=== PATIENT | female | born 1985 | race American Indian/Alaskan Native ===

== ENCOUNTER 2016-06-17 11:17 | Emergency (ER) | payer MEDICAID ==
--- NOTE | 2016-06-17 17:32 | Emergency Department Report ---
HPI - General Chief Complaint: Upper Respiratory Infection Time Seen by Provider: 06/17/16 17:27 - HPI HPI: Patient is a 30-year-old female who presents to ED complaining of runny nose/ cough and congestion 2 weeks. Patient states about 2 weeks ago her symptoms started with a runny nose and a dry cough. Patient tells time goes by she took some Claritin and Mucinex with no relief. Patient states a week ago she started greenish productive mucus with intermittent cough. Patient states cough and is now worse since causing her chest pain with coughing. Patient states she has a history of asthma and 2, breathing treatment this morning which helped give her some relief. Patient states she is having pain along the sinuses. She did not see assessed chills/nausea/vomiting/abdominal pain, shortness of breath, chest pain problems. ED Past Medical Hx - Past Medical History Hx Hypertension: No Hx Heart Attack/AMI: No Hx Liver Disease: No Hx Renal Disease: No Hx Asthma: Yes (used inhaler 2 months ago) Additional medical history: abnormal vaginal bleeding - Surgical History Additional Surgical History: x 3 - Social History Smoking Status: Never Smoker Substance Use Type: None - Medications Home Medications: Home Medications Medication Instructions Recorded Confirmed Last Taken Type HYDROcodone/APAP 5-325 [[place] 1 - 2 each PO Q6HR PRN #14 tablet 05/02/13 Unknown Rx 5/325 mg] Norgestimate-Ethinyl Estradiol 1 each PO BID #1 package 05/02/13 Unknown Rx [Sprintec] metroNIDAZOLE [Flagyl] 500 mg PO BID #14 tablet 05/02/13 05/27/16 05/24/16 Rx Brijesh-Iron Oral Liq 75 Mg/5 Ml PO DAILY 05/27/16 05/24/16 History traMADol 50 mg PO DAILY 05/27/16 05/27/16 05/24/16 History Acetaminophen [Acetaminophen 8 650 mg PO TID #30 tablet.er 06/17/16 Unknown Rx Hour] Amoxicillin [Trimox CAP] 500 mg PO TID #21 capsule 06/17/16 Unknown Rx Prednisone [predniSONE 10 mg 10 mg PO .TAPER #1 tab.ds.pk 06/17/16 Unknown Rx (6-Day Pack, 21 Tabs)] guaiFENesin/CODEINE [Robitussin AC] 5 ml PO TID #90 ml 06/17/16 Unknown Rx ED Review of Systems ROS: Stated complaint: HEAD/NECK/CHEST PAIN Other details as noted in HPI Constitutional: denies: chills, fever Eyes: denies: eye pain, eye discharge, vision change ENT: denies: ear pain, throat pain Respiratory: denies: cough, shortness of breath, wheezing Cardiovascular: denies: chest pain, palpitations Endocrine: no symptoms reported Gastrointestinal: denies: abdominal pain, nausea, diarrhea Genitourinary: denies: urgency, dysuria, discharge Musculoskeletal: denies: back pain, joint swelling, arthralgia Skin: denies: rash, lesions Neurological: denies: headache, weakness, numbness, paresthesias, confusion Psychiatric: denies: anxiety, depression Hematological/Lymphatic: denies: easy bleeding, easy bruising Physical Exam - Physical Exam Vital Signs: Vital Signs 06/17/16 13:11 Temperature 98.7 F Pulse Rate 65 Respiratory 20 Rate Blood Pressure 105/70 O2 Sat by Pulse 100 Oximetry Physical Exam: GENERAL: Alert and oriented x3, no apparent distress, Normal Gait, atraumatic. Intermittent coughing during examination. HEAD: Head is normocephalic and a-traumatic. EYES: Extra ocular muscles are intact. Pupils are equal, round, and reactive to light and accommodation. EARS: symetrical, atraumatic, non tender, ear canal clear and moderate cerumen, tympanic membrance non inflamed. gross auditory nml bilaterally. NOSE: Nose symetrical, Nontender,Nares appeared normal. Frontal and maxillary sinus tenderness to palpation. MOUTH:Mouth is well hydrated and without lesions. Tonsils nonerythematous or swollen, Uvula midline, Tongue not elevated. Mucous membranes are moist. Posterior pharynx clear, no exudate or lesions. Patent airways. NECK: Supple. Non edematous, No carotid bruits. No lymphadenopathy or thyromegaly. LUNGS: Symetrical with respiration, No wheezing, no rales or crackles, CTAB. HEART: S1, S2 present, regular rate and rhythm without murmur, no rubs, no gallops. ABDOMEN: No organomegaly was noted,Positive bowel sounds, soft, and non- distended. . Nontender to palpation on all Quadrants, NO CVA tenderness. EXTREMITIES/MUSCULOSKELETAL: No cyanosis, clubbing, rash, lesions or edema. Full ROM bilaterally. UE/LE Pulses 2+ bilaterally. NEUROLOGIC: No focal Deficit, Cranial nerves II through XII are grossly intact. No loss of sensation, PSYCHIATRIC: Mood is congruent with affect, denies suicidal or homicidal ideations. SKIN: Warm and dry, No lesions, No ulceration or induration present. ED Course Vital Signs 06/17/16 13:11 Temperature 98.7 F Pulse Rate 65 Respiratory 20 Rate Blood Pressure 105/70 O2 Sat by Pulse 100 Oximetry ED Medical Decision Making - Medical Decision Making 30-year-old female presents with sinusitis with bronchitis. ED course: Patient received Tylenol with codeine, Motrin and prednisone IM. Discussed patient antibiotic therapy. Discussed patient emotional Tylenol as needed for pain. Discussed patient with prednisone pack to be completed. Discussed patient to continue taking inhaler as needed at home nebulizer when needed. Discussed the follow-up primary care physician. Discussed worsening symptoms or new symptoms arise to return to ED. Vital signs are stable. Patient is in no acute or respiratory distress. Critical care attestation.: If time is entered above; I have spent that time in minutes in the direct care of this critically ill patient, excluding procedure time. ED Disposition Clinical Impression: Bronchitis Sinusitis Qualifiers: Sinusitis location: maxillary Chronicity: subacute Qualified Code(s): J01.00 - Acute maxillary sinusitis, unspecified Disposition: DISCHARGED TO HOME OR SELFCARE Is pt being admited?: No Does the pt Need Aspirin: No Condition: Stable Instructions: Chronic Bronchitis (ED), Sinusitis (ED), Upper Respiratory Infection (ED) Prescriptions: Acetaminophen [Acetaminophen 8 Hour] 650 mg PO TID #30 tablet.er Amoxicillin [Trimox CAP] 500 mg PO TID #21 capsule guaiFENesin/CODEINE [Robitussin AC] 5 ml PO TID #90 ml Prednisone [predniSONE 10 mg (6-Day Pack, 21 Tabs)] 10 mg PO .TAPER #1 tab.ds.pk Referrals: PRIMARY CARE, [Primary Care Provider] - 3-5 Days SHARATH TAYLOR MD [Referring] - 3-5 Days LE ABDALLA MD [Referring] - 3-5 Days JAIMEE HARMON MD [Referring] - 3-5 Days ANNE AMOS MD [Staff Physician] - 3-5 Days Forms: Accompanied Note, Work/School Release Form(ED) Time of Disposition: 17:53
[2016-06-17] MEDS ORDERED: TYLENOL/CODEINE PO ONE (17:43)
[2016-06-17] MEDS ORDERED: TRIMOX PO ONE (17:44)
[2016-06-17 18:45] VITALS: BP 108/58
== END 2016-06-17 18:45 | disposition home or self-care (01) ==
LOC: ED 11:17
DX: J40 Bronchitis, not specified as acute or chronic (principal); J01.00 Acute maxillary sinusitis, unspecified; J45.909 Unspecified asthma, uncomplicated
CPT/HCPCS: 96372; 99282; J2920

== ENCOUNTER 2016-07-22 12:35 | Emergency (ER) | payer MEDICAID | END 2016-07-22 12:40 | disposition left against medical advice (07) | LOC: ED 12:35 | DX: R51 Headache (principal); M54.2 Cervicalgia; Z53.21 Procedure and treatment not carried out due to patient leaving prior to being seen by health care provider ==

== ENCOUNTER 2016-08-20 19:57 | Emergency (ER) | payer MEDICAID ==
[2016-08-20 20:14] VITALS: BP 110/70
== END 2016-08-20 22:15 | disposition left against medical advice (07) ==
LOC: ED 19:57
DX: R51 Headache (principal); R07.9 Chest pain, unspecified; Z53.21 Procedure and treatment not carried out due to patient leaving prior to being seen by health care provider
CPT/HCPCS: 93005; 93010

== ENCOUNTER 2017-03-22 11:57 | Emergency (ER) | payer MEDICAID ==
[2017-03-22 12:08] VITALS: BP 108/78
--- NOTE | 2017-03-22 12:39 | XRay Report ---
XRAY CHEST TWO VIEWS: 03/22/17 11:57:00 CLINICAL: Cough. COMPARISON: None. FINDINGS: Normal heart and pulmonary vasculature. The lungs are mildly hyperexpanded and hyperlucentThe bones and soft tissues are unremarkable. IMPRESSION: Mild pulmonary hyperinflation. No pneumonia. Sign off report will
--- NOTE | 2017-03-22 14:22 | Emergency Department Report ---
Minor Respiratory - HPI Chief Complaint: Upper Respiratory Infection Stated Complaint: ASTHMA SORE THROAT Time Seen by Provider: 03/22/17 14:22 Duration: 2 Days Pain Location: Throat, Chest Severity: mild Minor Respiratory: Yes Sore Throat, Yes Able to Tolerate Fluids, Yes Ear Pain, Yes Cough, Yes Fever (YEST PER PT), No Rhinorrhea, No Sick Contacts, No Hemoptysis, No Chest Pain, No Shortness of Breath ED Review of Systems ROS: Stated complaint: ASTHMA SORE THROAT Other details as noted in HPI Comment: All other systems reviewed and negative ENT: throat pain Respiratory: cough, wheezing ED Past Medical Hx - Past Medical History Hx Hypertension: No Hx Heart Attack/AMI: No Hx Liver Disease: No Hx Renal Disease: No Hx Asthma: Yes Additional medical history: abnormal vaginal bleeding - Surgical History Additional Surgical History: x 3 - Social History Smoking Status: Never Smoker Substance Use Type: None - Medications Home Medications: Home Medications Medication Instructions Recorded Confirmed Last Taken Type Azithromycin [Zithromax TAB] 250 mg PO QDAY #6 tablet 03/22/17 Unknown Rx predniSONE [Deltasone] 20 mg PO DAILY #5 tablet 03/22/17 Unknown Rx Minor Respiratory Exam - Exam General: Vital signs noted. No distress. Alert and acting appropriately. HEENT: Yes Pharyngeal Erythema, Yes Moist Mucous Membranes, Yes Frontal Tenderness, Yes Maxillary Tenderness, No Pharyngeal Exudates, No Rhinorrhea, No Conjuctival Injection Ear: Both TM Erythema, Neither TM Bulge, Neither EAC Pain, Neither EAC Discharge Neck: Yes Supple, No Adenopathy Lungs: Yes Good Air Exchange, Yes Wheezes, Yes Cough, No Ronchi, No Stridor, No Labored Respirations, No Retractions, No Use of Accessory Muscles, No Other Abnormal Lung Sounds Heart: Yes Regular, No Murmur Abdomen: Yes Normal Bowel Sounds, No Tenderness, No Peritoneal Signs Skin: No Rash, No Edema Neurologic: Alert and oriented, no deficits. Musculoskeletal: Unremarkable. ED Course Vital Signs 03/22/17 12:06 Temperature 98.3 F Pulse Rate 87 Respiratory 16 Rate Blood Pressure 108/78 O2 Sat by Pulse 100 Oximetry - Reevaluation(s) Reevaluation #1: 03/22/17 14:48 TO ER W S/S URTI ASTHMA PT MILD WHEEEZING NON ILL NON TOXIC NO FEVER SAT 100 RA MEDICATED DC HOME W DC POC ED Medical Decision Making - Radiology Data Radiology results: report reviewed, image reviewed - Medical Decision Making SEE NOTE ASTHMA AE - Differential Diagnosis RO PNA Critical care attestation.: If time is entered above; I have spent that time in minutes in the direct care of this critically ill patient, excluding procedure time. ED Disposition Clinical Impression: Asthma with acute exacerbation, URTI (acute upper respiratory infection) Disposition: DC- TO HOME OR SELFCARE Is pt being admited?: No Condition: Stable Instructions: Asthma (ED) Additional Instructions: REST FLUIDS HYDRATE WELL REMEMBER IF THERE IS VIRAL COMPONENT IT WILL TAKE TIME FOR SYMPTOMS TO GO AWAY GOOD HANDWASHING MEDS ORDERED MOTRIN OR TYLENOL FOR PAIN OR FEVER FOLLOW UP WITH PCP FRIDAY FOR RECHECK CONTINUE HOME FLONVENT, LORATODINE, AND FLONASE Referrals: YISSEL MCDANIEL MD [Primary Care Provider] - 3-5 Days Time of Disposition: 14:42
[2017-03-22] MEDS ORDERED: TYLENOL PO ONE (14:39)
[2017-03-22] MEDS ORDERED: DUONEB *Not for PRN Use IH ONE (14:39)
== END 2017-03-22 15:39 | disposition home or self-care (01) ==
LOC: ED 11:57
DX: J45.901 Unspecified asthma with (acute) exacerbation (principal); J06.9 Acute upper respiratory infection, unspecified; Z88.2 Allergy status to sulfonamides; Z88.6 Allergy status to analgesic agent
CPT/HCPCS: 71020; 94640; 96374; 99283; J2930

== ENCOUNTER 2017-04-14 21:23 | Emergency (ER) | payer MEDICAID ==
[2017-04-14 21:36] VITALS: BP 103/71
[2017-04-14] MEDS ORDERED: TYLENOL PO ONE (22:07)
--- NOTE | 2017-04-15 02:36 | Emergency Department Report ---
- General Chief Complaint: Upper Respiratory Infection Stated Complaint: NECK PAIN Time Seen by Provider: 04/15/17 01:42 Source: patient Mode of arrival: Ambulatory Limitations: No Limitations - History of Present Illness Initial Comments: Patient is a 31-year-old -[place] female with a history of sinusitis recurrent who presents for sinus pain sinus pressure low-grade fever 102.13 days last sinus infection 1 month ago treated with Zpack patient states worse this time there is no dizziness no nausea no vomiting no vertigo no sore throat and cough no ear pain symptoms concentrated the maxillary and frontal sinuses tenderness swelling yellow-green nasal discharge MD Complaint: fever, rhinorrhea, nasal congestion, sinus pain Onset/Timin -: week(s) Severity: moderate Severity scale (0 -10): 5 Quality: aching, other (pressure ) Consistency: constant Worsens With: other (lying down) Associated Symptoms: fever, rhinorrhea, nasal congestion, nausea. denies: myalgias, diaphoresis, stiff neck, cough, chest pain, shortness of breath, abdominal pain, vomiting, diarrhea, dysuria, rash, confusion, right sweats, weight loss, epistaxis, hoarseness, ear pain Treatments Prior to Arrival: none - Related Data Previous Rx's Medication Instructions Recorded Last Taken Type Azithromycin [Zithromax TAB] 250 mg PO QDAY #6 tablet 03/22/17 Unknown Rx predniSONE [Deltasone] 20 mg PO DAILY #5 tablet 03/22/17 Unknown Rx Amoxicillin/Potassium Clav 1 tab PO BID #20 tablet 04/15/17 Unknown Rx [Augmentin 875-125 Tablet] Ibuprofen 800 mg PO TID PRN #30 tablet 04/15/17 Unknown Rx Oxymetazoline 0.05% [Afrin] 2 spray NS BID #1 bottle 04/15/17 Unknown Rx predniSONE [Deltasone] 40 mg PO QDAY #10 tab 04/15/17 Unknown Rx Allergies Allergy/AdvReac Type Severity Reaction Status Date / Time aspirin Allergy Rash Verified 03/22/17 12:06 Sulfa (Sulfonamide Allergy Shortness Verified 03/22/17 12:06 Antibiotics) of Breath ED Review of Systems ROS: Stated complaint: NECK PAIN Other details as noted in HPI Constitutional: denies: chills, fever Eyes: denies: eye pain, eye discharge, vision change ENT: congestion Respiratory: denies: cough, shortness of breath, wheezing Cardiovascular: denies: chest pain, palpitations Endocrine: no symptoms reported Gastrointestinal: denies: abdominal pain, nausea, diarrhea Genitourinary: denies: urgency, dysuria, discharge Musculoskeletal: denies: back pain, joint swelling, arthralgia Skin: denies: rash, lesions Neurological: denies: headache, weakness, paresthesias Psychiatric: denies: anxiety, depression Hematological/Lymphatic: denies: easy bleeding, easy bruising ED Past Medical Hx - Past Medical History Hx Hypertension: No Hx Heart Attack/AMI: No Hx Liver Disease: No Hx Renal Disease: No Hx Asthma: Yes Additional medical history: abnormal vaginal bleeding, Sinusitis - Surgical History Additional Surgical History: x 3 - Social History Smoking Status: Never Smoker Substance Use Type: None - Medications Home Medications: Home Medications Medication Instructions Recorded Confirmed Last Taken Type Azithromycin [Zithromax TAB] 250 mg PO QDAY #6 tablet 03/22/17 Unknown Rx predniSONE [Deltasone] 20 mg PO DAILY #5 tablet 03/22/17 Unknown Rx Amoxicillin/Potassium Clav 1 tab PO BID #20 tablet 04/15/17 Unknown Rx [Augmentin 875-125 Tablet] Ibuprofen 800 mg PO TID PRN #30 tablet 04/15/17 Unknown Rx Oxymetazoline 0.05% [Afrin] 2 spray NS BID #1 bottle 04/15/17 Unknown Rx predniSONE [Deltasone] 40 mg PO QDAY #10 tab 04/15/17 Unknown Rx ED Physical Exam - General Limitations: No Limitations General appearance: alert, in no apparent distress - Head Head exam: Present: atraumatic, normocephalic - Eye Eye exam: Present: normal appearance, PERRL, EOMI Pupils: Present: normal accommodation - ENT ENT exam: Present: mucous membranes moist, TM's normal bilaterally - Expanded ENT Exam Expanded Ear exam: Present: normal external inspection Throat exam: Positive: other (bilat maxillary and frontal sinus pain erythema , nose: boggy yellow green output, no obstruction no polyps no obstruction ) - Neck Neck exam: Present: normal inspection. Absent: full ROM, lymphadenopathy, thyromegaly - Respiratory Respiratory exam: Present: normal lung sounds bilaterally. Absent: respiratory distress - Cardiovascular Cardiovascular Exam: Present: regular rate, normal rhythm. Absent: systolic murmur, diastolic murmur, rubs, gallop - GI/Abdominal GI/Abdominal exam: Present: soft, normal bowel sounds. Absent: distended, tenderness, guarding, rebound, rigid, organomegaly, mass, bruit, pulsatile mass , hernia - Rectal Rectal exam: Present: deferred - Extremities Exam Extremities exam: Present: normal inspection - Back Exam Back exam: Present: normal inspection - Neurological Exam Neurological exam: Present: alert, oriented X3 - Psychiatric Psychiatric exam: Present: normal affect, normal mood - Skin Skin exam: Present: warm, dry, intact, normal color. Absent: rash ED Course Vital Signs 04/14/17 04/14/17 21:28 21:58 Temperature 99.1 F 99.1 F Pulse Rate 90 95 H Respiratory 18 Rate Blood Pressure 103/71 103/71 O2 Sat by Pulse 99 97 Oximetry ED Medical Decision Making - Medical Decision Making Patient is a 31-year-old -[place] female with a history of sinusitis recurrent who presents for sinus pain sinus pressure low-grade fever 102.13 days last sinus infection 1 month ago treated with Zpack patient states worse this time there is no dizziness no nausea no vomiting no vertigo no sore throat and cough no ear pain symptoms concentrated the maxillary and frontal sinuses tenderness swelling yellow-green nasal discharge, exam bilat frontal and maxillary sinus tenderness nose: boggy yellow green rhinorrhea pain with palpation, pharynx: mild erythema no swelling no lesions no exudate, no stridor uvula midline, lungs clear bilat no wheezing plan: Augmentin , Afrin, ibuprofen , prednisone, pt will follow up with primary care in 2-3 days pt verbalized agreement and understanding with discharge plan. Critical care attestation.: If time is entered above; I have spent that time in minutes in the direct care of this critically ill patient, excluding procedure time. ED Disposition Clinical Impression: Sinusitis Qualifiers: Sinusitis location: maxillary Chronicity: acute Recurrence: recurrent Qualified Code(s): J01.01 - Acute recurrent maxillary sinusitis URI (upper respiratory infection) Qualifiers: URI type: unspecified viral URI Qualified Code(s): J06.9 - Acute upper respiratory infection, unspecified Disposition: TO HOME OR SELFCARE Is pt being admited?: No Does the pt Need Aspirin: No Condition: Good Instructions: Sinusitis (ED), Upper Respiratory Infection (ED) Prescriptions: Amoxicillin/Potassium Clav [Augmentin 875-125 Tablet] 1 tab PO BID #20 tablet Ibuprofen 800 mg PO TID PRN #30 tablet PRN Reason: pain fever Oxymetazoline 0.05% [Afrin] 2 spray NS BID #1 bottle predniSONE [Deltasone] 40 mg PO QDAY #10 tab Referrals: GIA CERVANTES MD [Primary Care Provider] - 3-5 Days Forms: Work/School Release Form(ED) Time of Disposition: 02:47
== END 2017-04-15 02:50 | disposition home or self-care (01) ==
LOC: ED 21:23
DX: J01.01 Acute recurrent maxillary sinusitis (principal); J06.9 Acute upper respiratory infection, unspecified; J45.909 Unspecified asthma, uncomplicated; Z88.6 Allergy status to analgesic agent; Z88.2 Allergy status to sulfonamides
CPT/HCPCS: 99282

== ENCOUNTER 2018-04-07 18:35 | Emergency (ER) | payer MEDICAID ==
[2018-04-07 18:42] VITALS: BP 101/70
--- NOTE | 2018-04-07 19:13 | Emergency Department Report ---
HPI - General Chief Complaint: Fall Time Seen by Provider: 04/07/18 18:57 - HPI HPI: This is a 32-year-old female who presents to ED complaining of right shoulder and right wrist and hand pain status post fall from last night. Patient states she was walking in her home and she accidentally tripped on a shoe and fell and tried to catch herself with her hand. She says this morning she is unable to bend her middle finger. She denies any trauma to the head, loss of sensation. ED Past Medical Hx - Past Medical History Hx Hypertension: No Hx Heart Attack/AMI: No Hx Liver Disease: No Hx Renal Disease: No Hx Asthma: Yes Additional medical history: abnormal vaginal bleeding, Sinusitis - Surgical History Additional Surgical History: x 3. hysterectomy 03/10 - Social History Smoking Status: Never Smoker Substance Use Type: None - Medications Home Medications: Home Medications Medication Instructions Recorded Confirmed Last Taken Type predniSONE [Deltasone] 20 mg PO DAILY #5 tablet 03/22/17 Unknown Rx Oxymetazoline 0.05% [Afrin] 2 spray NS BID #1 bottle 04/15/17 Unknown Rx predniSONE [Deltasone] 40 mg PO QDAY #10 tab 04/15/17 Unknown Rx Amoxicillin/Potassium Clav 1 tab PO BID #20 tablet 01/05/18 Unknown Rx [Augmentin 875-125 Tablet] Carbamide Peroxide 6.5% [Ear Wax 2 drops OT TID #1 bottle 01/05/18 Unknown Rx Drops] Acetamin/Codeine 120-12Mg/5 ml 5 ml PO TID #60 ml 03/29/18 Unknown Rx [Tylenol/Codeine] Azithromycin [Zithromax TAB] 250 mg PO QDAY #6 tablet 03/29/18 Unknown Rx Cyclobenzaprine [Flexeril] 10 mg PO QHS PRN #10 tablet 04/07/18 Unknown Rx Ibuprofen 800 mg PO TID PRN #30 tablet 04/07/18 Unknown Rx ED Review of Systems ROS: Stated complaint: RT HAND PAIN Other details as noted in HPI Comment: All other systems reviewed and negative Physical Exam - Physical Exam Vital Signs: Vital Signs 04/07/18 18:39 Temperature 98.1 F Pulse Rate 73 Respiratory 18 Rate Blood Pressure 101/70 O2 Sat by Pulse 100 Oximetry Physical Exam: GENERAL: Alert and oriented x3, no apparent distress, Normal Gait, atraumatic. HEAD: Head is normocephalic and a-traumatic. NECK: Supple. Non edematous, No lymphadenopathy or thyromegaly. No C-spine tenderness, full range of motion LUNGS: Symetrical with respiration, No wheezing, no rales or crackles, CTAB. HEART: S1, S2 present, regular rate and rhythm without murmur, no rubs, no gallops. Non tender to palpation BACK: Full range of motion, no spinal tenderness, Tenderness to palpation of the trapezius muscles and latissimus dorsi muscles of the back EXTREMITIES/MUSCULOSKELETAL: No cyanosis, clubbing, rash, lesions or edema. Full ROM bilaterally. UE Pulses 2+ bilaterally. UE 5+ strength bilaterally, NEUROLOGIC: The patient is cooperative with no focal neurologic deficits. SKIN: Warm and dry, No lesions, No ulceration or induration present. ED Course Vital Signs 04/07/18 18:39 Temperature 98.1 F Pulse Rate 73 Respiratory 18 Rate Blood Pressure 101/70 O2 Sat by Pulse 100 Oximetry ED Medical Decision Making - Radiology Data Radiology results: report reviewed, image reviewed FINAL REPORT EXAM: XR FINGER(S) 2+V RT HISTORY: hand pain TECHNIQUE: AP, lateral, and oblique views of the right hand with attention to the 3rd and 4th digits PRIORS: None. FINDINGS: There is no evidence for acute fracture or dislocation. No soft tissue swelling or radiopaque foreign bodies are seen. Bony mineralization is normal and joint spaces are maintained. IMPRESSION: No acute bony or soft tissue abnormality noted. Transcribed By: [facility] Dictated By: RICHIE GONGORA MD Electronically Authenticated By: RICHIE GONGORA MD Signed Date/Time: 04/07/182142 FINAL REPORT EXAM: XR SHOULDER 2+V RT HISTORY: fall/ shld pain TECHNIQUE: 3 views of the right shoulder PRIORS: None. FINDINGS: The glenohumeral and acromioclavicular joints are normally aligned. The bones are normally mineralized. The soft tissues are unremarkable. IMPRESSION: Normal right shoulder. Transcribed By: [facility] Dictated By: NOHEMY ZAFAR MD Electronically Authenticated By: NOHEMY ZAFAR MD Signed Date/Time: 04/07/182042 - Medical Decision Making 32-year-old female presents with myalgia status post fall ED course: Patient received Toradol in ED. Vital signs are normal patient is in no acute distress Discussed with patient follow-up with primary care physician. Discussed the patient and take medications as prescribed. Patient has no neurological deficit. Patient is alert and oriented 3 and understands all instructions given. Discussed drowsiness effect of Flexeril makes her drowsy and not to operate machinery while taking flexeril Critical care attestation.: If time is entered above; I have spent that time in minutes in the direct care of this critically ill patient, excluding procedure time. ED Disposition Clinical Impression: Shoulder pain, right, Hand sprain Disposition: - TO HOME OR SELFCARE Is pt being admited?: No Does the pt Need Aspirin: No Condition: Stable Instructions: Shoulder Sprain (ED), Hand Sprain (ED), Arthralgia (ED) Additional Instructions: Make sure to follow up with the primary care physician as discussed. Take all your medications as you've been prescribed. If you have any worsening symptoms or develop new symptoms please return to ED immediately. Prescriptions: Cyclobenzaprine [Flexeril] 10 mg PO QHS PRN #10 tablet PRN Reason: Muscle Spasm Ibuprofen 800 mg PO TID PRN #30 tablet PRN Reason: pain fever Referrals: NAYELI STANLEY MD [Primary Care Provider] - 3-5 Days [facility] [Outside] - 3-5 Days [facility] [Outside] - 3-5 Days Forms: Work/School Release Form(ED) Time of Disposition: 21:51
[2018-04-07] MEDS ORDERED: TORADOL IM ONE (20:05)
--- NOTE | 2018-04-07 20:43 | XRay Report ---
FINAL REPORT EXAM: XR SHOULDER 2+V RT HISTORY: fall/ shld pain TECHNIQUE: 3 views of the right shoulder PRIORS: None. FINDINGS: The glenohumeral and acromioclavicular joints are normally aligned. The bones are normally mineralize d. The soft tissues are unremarkable. IMPRESSION: Normal right shoulder.
[2018-04-07] MEDS ORDERED: FLEXERIL PO ONE (21:41)
[2018-04-07] MEDS ORDERED: FLEXERIL ONE (21:43)
--- NOTE | 2018-04-07 21:43 | XRay Report ---
FINAL REPORT EXAM: XR FINGER(S) 2+V RT HISTORY: hand pain TECHNIQUE: AP, lateral, and oblique views of the right hand with attention to the 3rd and 4th digits PRIORS: None. FINDINGS: There is no evidence for acute fracture or dislocation. No soft tissue swelling or radiopaque foreign bodies are seen. Bony mineralization is normal and joint spaces are maintained. IMPRESSION: No acute bony or soft tissue abnormality noted.
== END 2018-04-07 22:00 | disposition home or self-care (01) ==
LOC: ED 18:35
DX: S63.92XA Sprain of unspecified part of left wrist and hand, initial encounter (principal); M25.511 Pain in right shoulder; J45.909 Unspecified asthma, uncomplicated; Z90.710 Acquired absence of both cervix and uterus; Z88.6 Allergy status to analgesic agent; Z88.2 Allergy status to sulfonamides; W01.0XXA Fall on same level from slipping, tripping and stumbling without subsequent striking against object, initial encounter; Y93.01 Activity, walking, marching and hiking; Y99.8 Other external cause status; Y92.019 Unspecified place in single-family (private) house as the place of occurrence of the external cause
CPT/HCPCS: 73030; 73140; 96372; 99283; J1885

== ENCOUNTER 2018-05-27 18:21 | Emergency (ER) | payer MEDICAID ==
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
--- NOTE | 2018-05-27 19:45 | XRay Report ---
PROCEDURE: XR SPINE CERVICAL 2-3V TECHNIQUE: Cervical spine 5 views HISTORY: neck pain COMPARISONS: FINDINGS: Vertebral bodies demonstrate normal height and alignment. Spinous processes are intact. The facet jonathon nts demonstrate normal alignment. Prevertebral soft tissues are unremarkable. IMPRESSION: Normal cervical spine series. This document is electronically signed by Dusty Carr MD., May 27 2018 07:42:45 PM ET
--- NOTE | 2018-05-27 19:48 | XRay Report ---
PROCEDURE: XR HAND 3+V LT TECHNIQUE: Left hand 3 views HISTORY: left hand pain COMPARISONS: FINDINGS: Films are labeled as right hand however history indicates left hand pain. Please correlate as to late rality. Seen best on oblique view is lucency extending through the cortex base of the middle phalanx fourth digit extending to the articular surface without displacement or step off. No radiopaque foreign bodi es are observed. Remaining bony structures and joint spaces are unremarkable IMPRESSION: Findings are consistent with nondisplaced fracture base middle phalanx of the fourth digit. This document is electronically signed by Dusty Carr MD., May 27 2018 07:46:13 PM ET
[2018-05-27] MEDS ORDERED: NORCO 5/325 PO ONE (21:21)
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
[2018-05-27 21:42] VITALS: BP 92/61
== END 2018-05-27 22:05 | disposition home or self-care (01) ==
LOC: ED 18:21
DX: S62.653A Nondisplaced fracture of middle phalanx of left middle finger, initial encounter for closed fracture (principal); S16.1XXA Strain of muscle, fascia and tendon at neck level, initial encounter; J45.909 Unspecified asthma, uncomplicated; Z88.0 Allergy status to penicillin; Z88.2 Allergy status to sulfonamides; Y04.0XXA Assault by unarmed brawl or fight, initial encounter; Y93.89 Activity, other specified; Y92.89 Other specified places as the place of occurrence of the external cause; Y99.8 Other external cause status
CPT/HCPCS: 72040

== ENCOUNTER 2018-09-04 11:52 | Emergency (ER) | payer MEDICAID ==
--- NOTE | 2018-09-04 12:14 | Event Note ---
ED Screening Note ED Screening Note: pt co cough so hard it is making her nauseated no fever or chills VSS in triage This initial assessment/diagnostic orders/clinical plan/treatment(s) is/are subject to change based on patients health status, clinical progression and re- assessment by fellow clinical providers in the ED. Further treatment and workup at subsequent clinical providers discretion. Patient/guardian urged not to elope from the ED as their condition may be serious if not clinically assessed and managed. Initial orders include: chest xray with reeval in ER.
--- NOTE | 2018-09-04 12:44 | XRay Report ---
CHEST 2 VIEWS INDICATION: Cough. COMPARISON: 03/29/2018. FINDINGS: PA and lateral chest radiographs demonstrate normal cardiomediastinal silhouette. Clear lungs. Intact bones. CONCLUSION: No acute disease in the chest, stable. Thank you for the opportunity to participate in this patient's care.
[2018-09-04] MEDS ORDERED: PROVENTIL IH ONE (12:54)
[2018-09-04] MEDS ORDERED: TYLENOL PO ONE (12:55)
[2018-09-04] MEDS ORDERED: ZOFRAN ODT PO STA (12:55)
[2018-09-04] MEDS ORDERED: LIDOCAINE VISCOUS 2% PO ONE (12:55)
[2018-09-04] MEDS ORDERED: NACL 0.9% 1000 ML 1,000 ML IV ONE (12:56)
[2018-09-04] MEDS ORDERED: PEPCID IV ONE (12:56)
--- NOTE | 2018-09-04 12:56 | Emergency Department Report ---
ED General Adult HPI - General Chief complaint: Adult Asthma Stated complaint: CHEST PAIN/COUGH Time Seen by Provider: 09/04/18 12:37 Source: patient, RN notes reviewed, old records reviewed Mode of arrival: Ambulatory Limitations: No Limitations - History of Present Illness Initial comments: This is a 32-year-old female. Patient reports a history of asthma and hysterectomy. Presents to the emergency room today with a complaint of chest wall pain, cough, mucus production, posttussive emesis, malaise, fatigue. Also endorses a sore throat. Symptoms intermittent over the past 5 or 6 days. They worsen with palpation of the chest, and attempting to eat and/or drink. The patient denies DVT, pulmonary embolus risk factors. She no longer smokes c igarettes, occasionally consumes marijuana, and indicates that some family members consume cigarettes. -: Gradual Location: chest, back, left, right, upper extremity, lower extremity Radiation: non-radiation Severity scale (0 -10): 7 Quality: aching Consistency: intermittent Improves with: rest Worsens with: movement - Related Data Previous Rx's Medication Instructions Recorded Last Taken Type predniSONE [Deltasone] 20 mg PO DAILY #5 tablet 03/22/17 Unknown Rx Oxymetazoline 0.05% [Afrin] 2 spray NS BID #1 bottle 04/15/17 Unknown Rx predniSONE [Deltasone] 40 mg PO QDAY #10 tab 04/15/17 Unknown Rx Amoxicillin/Potassium Clav 1 tab PO BID #20 tablet 01/05/18 Unknown Rx [Augmentin 875-125 Tablet] Carbamide Peroxide 6.5% [Ear Wax 2 drops OT TID #1 bottle 01/05/18 Unknown Rx Drops] Acetamin/Codeine 120-12Mg/5 ml 5 ml PO TID #60 ml 03/29/18 Unknown Rx [Tylenol/Codeine] Azithromycin [Zithromax TAB] 250 mg PO QDAY #6 tablet 03/29/18 Unknown Rx Cyclobenzaprine [Flexeril] 10 mg PO QHS PRN #10 tablet 04/07/18 Unknown Rx Ibuprofen 800 mg PO TID PRN #30 tablet 04/07/18 Unknown Rx HYDROcodone/APAP 5-325 [[place] 1 each PO Q6HR PRN 3 Days #12 05/27/18 Unknown Rx 5-325 mg TAB] tablet Acetaminophen [Non-Aspirin Extra 500 mg PO Q6HR PRN #30 tablet 09/04/18 Unknown Rx Strength] Albuterol Sulfate [Proair 90 mcg IH Q4HR PRN #2 aer.pow.ba 09/04/18 Unknown Rx Respiclick] Benzonatate [Tessalon Perles] 100 mg PO Q8HR PRN #30 capsule 09/04/18 Unknown Rx Fluticasone [Flonase] 1 spray NS QDAY #1 bottle 09/04/18 Unknown Rx Ondansetron [Zofran Odt] 4 mg PO Q8HR PRN #20 tab.rapdis 09/04/18 Unknown Rx Allergies Allergy/AdvReac Type Severity Reaction Status Date / Time aspirin Allergy Rash Verified 09/04/18 12:05 Sulfa (Sulfonamide Allergy Shortness Verified 09/04/18 12:05 Antibiotics) of Breath ED Review of Systems ROS: Stated complaint: CHEST PAIN/COUGH Other details as noted in HPI Constitutional: malaise Eyes: denies: eye discharge ENT: throat pain, congestion Respiratory: cough, wheezing Cardiovascular: chest pain Gastrointestinal: nausea, vomiting Musculoskeletal: back pain, arthralgia, myalgia Skin: denies: lesions Neurological: weakness Psychiatric: anxiety ED Past Medical Hx - Past Medical History Hx Hypertension: No Hx Heart Attack/AMI: No Hx Liver Disease: No Hx Renal Disease: No Hx Asthma: Yes Additional medical history: abnormal vaginal bleeding, Sinusitis - Surgical History Additional Surgical History: x 3. hysterectomy 03/10 - Social History Smoking Status: Current Some Day Smoker Substance Use Type: Marijuana - Medications Home Medications: Home Medications Medication Instructions Recorded Confirmed Last Taken Type predniSONE [Deltasone] 20 mg PO DAILY #5 tablet 03/22/17 Unknown Rx Oxymetazoline 0.05% [Afrin] 2 spray NS BID #1 bottle 04/15/17 Unknown Rx predniSONE [Deltasone] 40 mg PO QDAY #10 tab 04/15/17 Unknown Rx Amoxicillin/Potassium Clav 1 tab PO BID #20 tablet 01/05/18 Unknown Rx [Augmentin 875-125 Tablet] Carbamide Peroxide 6.5% [Ear Wax 2 drops OT TID #1 bottle 01/05/18 Unknown Rx Drops] Acetamin/Codeine 120-12Mg/5 ml 5 ml PO TID #60 ml 03/29/18 Unknown Rx [Tylenol/Codeine] Azithromycin [Zithromax TAB] 250 mg PO QDAY #6 tablet 03/29/18 Unknown Rx Cyclobenzaprine [Flexeril] 10 mg PO QHS PRN #10 tablet 04/07/18 Unknown Rx Ibuprofen 800 mg PO TID PRN #30 tablet 04/07/18 Unknown Rx HYDROcodone/APAP 5-325 [[place] 1 each PO Q6HR PRN 3 Days #12 05/27/18 Unknown Rx 5-325 mg TAB] tablet Acetaminophen [Non-Aspirin Extra 500 mg PO Q6HR PRN #30 tablet 09/04/18 Unknown Rx Strength] Albuterol Sulfate [Proair 90 mcg IH Q4HR PRN #2 aer.pow.ba 09/04/18 Unknown Rx Respiclick] Benzonatate [Tessalon Perles] 100 mg PO Q8HR PRN #30 capsule 09/04/18 Unknown Rx Fluticasone [Flonase] 1 spray NS QDAY #1 bottle 09/04/18 Unknown Rx Ondansetron [Zofran Odt] 4 mg PO Q8HR PRN #20 tab.rapdis 09/04/18 Unknown Rx ED Physical Exam - General Limitations: No Limitations General appearance: alert, anxious - Head Head exam: Present: atraumatic, normocephalic - Eye Eye exam: Present: normal appearance, EOMI - ENT ENT exam: Present: normal exam, normal orophraynx, mucous membranes moist, normal external ear exam - Neck Neck exam: Present: normal inspection, full ROM. Absent: tenderness, meningismus - Respiratory Respiratory exam: Present: normal lung sounds bilaterally. Absent: respiratory distress, wheezes, rales, rhonchi, stridor, decreased breath sounds - Cardiovascular Cardiovascular Exam: Present: normal rhythm, tachycardia, normal heart sounds. Absent: systolic murmur, diastolic murmur, rubs, gallop - GI/Abdominal GI/Abdominal exam: Present: soft. Absent: distended, tenderness, guarding, rebound, rigid, pulsatile mass - Extremities Exam Extremities exam: Present: normal inspection, full ROM, other (2+ pulses noted in the bilateral upper, lower extremities. Compartments soft. No long bony tenderness. The pelvis is stable.). Absent: pedal edema, calf tenderness - Back Exam Back exam: Present: normal inspection, full ROM. Absent: tenderness, CVA tenderness (R), CVA tenderness (L), paraspinal tenderness, vertebral tenderness - Neurological Exam Neurological exam: Present: alert, normal gait, other (Extraocular movements intact. Tongue midline. No facial droop. Facial sensation intact to light touch in the V1, V2, V3 distribution bilaterally. 5 and 5 strength in 4 extremities.. Sensation is intact to light touch in 4 extremities.). Absent: motor sensory deficit - Psychiatric Psychiatric exam: Present: anxious - Skin Skin exam: Present: warm, dry, intact, normal color. Absent: rash ED Course Vital Signs 09/04/18 09/04/18 12:03 14:33 Temperature 98.2 F 98.3 F Pulse Rate 100 H 76 Respiratory 22 17 Rate Blood Pressure 88/60 104/45 [Right] O2 Sat by Pulse 99 100 Oximetry - Reevaluation(s) Reevaluation #1: 09/04/18 13:20 Differential diagnosis, including not limited to: GERD, gastritis, costochondritis, bronchitis, pneumonia, hiatal hernia Assessment and plan: 76-year-old female, very slender, with cough, chest wall pain, mucus production, posttussive emesis. The pressure reviewed and appreciated. Patient's is very slight obstetric, and typically has low blood pressure when compared on prior laboratory evaluations. Unlikely to be acute coronary syndrome, patient reports no DVT or pulmonary embolus risk factors, and I find her to be low risk by well's criteria. EKG abnormal but unchanged from prior, low risk for major adverse cardiac event as per the heart score. We will give IV fluids, nausea medication, pain medication, albuterol, and reassess. Reevaluation #2: 09/04/18 14:42 Feeling improved. Tachycardia resolved. Tolerating liquid feeds. Blood pressure improved. Objective laboratory testing unremarkable. Medically suitable for discharge at this point in time ED Medical Decision Making - Lab Data Result diagrams: 09/04/18 Unknown 09/04/18 Unknown Vital Signs 09/04/18 12:03 Temperature 98.2 F Pulse Rate 100 H Respiratory 22 Rate Blood Pressure 88/60 [Right] O2 Sat by Pulse 99 Oximetry Vital Signs 09/04/18 09/04/18 12:03 14:33 Temperature 98.2 F 98.3 F Pulse Rate 100 H 76 Respiratory 22 17 Rate Blood Pressure 88/60 104/45 [Right] O2 Sat by Pulse 99 100 Oximetry Labs 09/04/18 09/04/18 09/04/18 Unknown Unknown Unknown WBC 11.8 H RBC 3.81 Hgb 10.7 Hct 31.7 MCV 83 MCH 28 MCHC 34 RDW 14.6 Plt Count 178 PT 13.1 INR 1.02 Sodium 139 Potassium 3.5 L Chloride 103.9 Carbon Dioxide 24 Anion Gap 15 BUN 6 L Creatinine 0.6 L Estimated GFR > 60 BUN/Creatinine Ratio 10 Glucose 90 Calcium 9.2 Magnesium 2.00 Total Creatine Kinase 153 H Troponin T < 0.010 - EKG Data -: EKG Interpreted by Me EKG shows normal: sinus rhythm Rate: normal - EKG Data 09/04/18 13:22 Unchanged from prior EKG July 2016 Normal sinus, normal axis, QTC prolonged, poor R-wave progression, abnormal EKG, not consistent with ST elevation myocardial infarction. - Radiology Data Radiology results: report reviewed, image reviewed X-ray of the chest is negative for acute disease. Critical care attestation.: If time is entered above; I have spent that time in minutes in the direct care of this critically ill patient, excluding procedure time. ED Disposition Clinical Impression: Bronchitis Disposition: DC-01 TO HOME OR SELFCARE Is pt being admited?: No Does the pt Need Aspirin: No Condition: Stable Instructions: Acute Bronchitis (ED) Additional Instructions: Take the medications as needed/directed. Avoid exposure to smoke and smoke products. Follow up with a primary care doctor within the next 2 weeks. Advance diet as tolerated. Return to the emergency room right away with projectile vomiting, change in mental status, confusion, inability to tolerate liquid feeds, new, worsening or different symptoms not present on the initial emergency room evaluation. Referrals: YISSEL MCDANIEL MD [Primary Care Provider] - 3-5 Days
[2018-09-04 13:27] LABS: Hematocrit 31.7 % (30.3-42.9); Hemoglobin 10.7 gm/dl (10.1-14.3); Mean Corpuscular HGB Conc 34 % (30-34); Mean Corpuscular Volume 83 fl (79-97); Red Blood Count 3.81 M/mm3 (3.65-5.03); Red Cell Distribution Width 14.6 % (13.2-15.2)
[2018-09-04 13:33] LABS: Platelet Count 178 K/mm3 (140-440)
[2018-09-04 13:38] LABS: INR 1.02 (0.87-1.13)
[2018-09-04 14:04] LABS: BUN/Creatinine Ratio 10; Blood Urea Nitrogen 6 mg/dL (7-17); Calcium 9.2 mg/dL (8.4-10.2); Hemolysis Index 7
[2018-09-04 14:34] VITALS: BP 104/45
== END 2018-09-04 14:50 | disposition home or self-care (01) ==
LOC: ED 11:52
DX: J45.909 Unspecified asthma, uncomplicated (principal); F17.200 Nicotine dependence, unspecified, uncomplicated; F12.10 Cannabis abuse, uncomplicated; Z90.710 Acquired absence of both cervix and uterus; Z88.2 Allergy status to sulfonamides; Z88.8 Allergy status to other drugs, medicaments and biological substances
CPT/HCPCS: 36415; 71046; 80048; 82550; 83735; 84484; 85027; 85610; 93005; 93010; 94640; 96361; 96374; 99284; J7030

== ENCOUNTER 2018-10-14 09:53 | Emergency (ER) | payer MEDICAID ==
--- NOTE | 2018-10-14 11:26 | XRay Report ---
LEFT FINGER(S) 3 VIEW(S) INDICATION / CLINICAL INFORMATION: left index finger injury/PAIN COMPARISON: None available. FINDINGS: BONES / JOINT(S): No acute fracture or subluxation. No significant arthritis. SOFT TISSUES: No significant abnormality. ADDITIONAL FINDINGS: None. IMPRESSION: 1. Normal. Signer Name: Dennys Pollard MD Signed: 10/14/2018 11:22 AM Workstation Name: [id number]
[2018-10-14] MEDS ORDERED: FLEXERIL PO ONE (11:48)
--- NOTE | 2018-10-14 11:48 | Emergency Department Report ---
ED Upper Extremity Inj HPI - General Chief Complaint: Extremity Injury, Upper Stated Complaint: LT FINGER INJURY Time Seen by Provider: 10/14/18 10:52 Source: patient Mode of arrival: Ambulatory Limitations: No Limitations - Related Data Previous Rx's Medication Instructions Recorded Last Taken Type predniSONE [Deltasone] 20 mg PO DAILY #5 tablet 03/22/17 Unknown Rx Oxymetazoline 0.05% [Afrin] 2 spray NS BID #1 bottle 04/15/17 Unknown Rx predniSONE [Deltasone] 40 mg PO QDAY #10 tab 04/15/17 Unknown Rx Amoxicillin/Potassium Clav 1 tab PO BID #20 tablet 01/05/18 Unknown Rx [Augmentin 875-125 Tablet] Carbamide Peroxide 6.5% [Ear Wax 2 drops OT TID #1 bottle 01/05/18 Unknown Rx Drops] Acetamin/Codeine 120-12Mg/5 ml 5 ml PO TID #60 ml 03/29/18 Unknown Rx [Tylenol/Codeine] Azithromycin [Zithromax TAB] 250 mg PO QDAY #6 tablet 03/29/18 Unknown Rx Ibuprofen 800 mg PO TID PRN #30 tablet 04/07/18 Unknown Rx HYDROcodone/APAP 5-325 [[employer] 1 each PO Q6HR PRN 3 Days #12 05/27/18 Unknown Rx 5-325 mg TAB] tablet Acetaminophen [Non-Aspirin Extra 500 mg PO Q6HR PRN #30 tablet 09/04/18 Unknown Rx Strength] Albuterol Sulfate [Proair 90 mcg IH Q4HR PRN #2 aer.pow.ba 09/04/18 Unknown Rx Respiclick] Benzonatate [Tessalon Perles] 100 mg PO Q8HR PRN #30 capsule 09/04/18 Unknown Rx Fluticasone [Flonase] 1 spray NS QDAY #1 bottle 09/04/18 Unknown Rx Ondansetron [Zofran Odt] 4 mg PO Q8HR PRN #20 tab.rapdis 09/04/18 Unknown Rx Cyclobenzaprine [Flexeril 10 MG 10 mg PO QHS PRN #10 tablet 10/14/18 Unknown Rx TAB] Allergies Allergy/AdvReac Type Severity Reaction Status Date / Time aspirin Allergy Rash Verified 09/04/18 12:05 Sulfa (Sulfonamide Allergy Shortness Verified 09/04/18 12:05 Antibiotics) of Breath ED Review of Systems ROS: Stated complaint: LT FINGER INJURY Other details as noted in HPI ED Past Medical Hx - Past Medical History Hx Hypertension: No Hx Heart Attack/AMI: No Hx Liver Disease: No Hx Renal Disease: No Hx Asthma: Yes Additional medical history: abnormal vaginal bleeding, Sinusitis - Surgical History Additional Surgical History: x 3. hysterectomy 03/10 - Social History Smoking Status: Never Smoker Substance Use Type: None - Medications Home Medications: Home Medications Medication Instructions Recorded Confirmed Last Taken Type predniSONE [Deltasone] 20 mg PO DAILY #5 tablet 03/22/17 Unknown Rx Oxymetazoline 0.05% [Afrin] 2 spray NS BID #1 bottle 04/15/17 Unknown Rx predniSONE [Deltasone] 40 mg PO QDAY #10 tab 04/15/17 Unknown Rx Amoxicillin/Potassium Clav 1 tab PO BID #20 tablet 01/05/18 Unknown Rx [Augmentin 875-125 Tablet] Carbamide Peroxide 6.5% [Ear [employer]ax 2 drops OT TID #1 bottle 01/05/18 Unknown Rx Drops] Acetamin/Codeine 120-12Mg/5 ml 5 ml PO TID #60 ml 03/29/18 Unknown Rx [Tylenol/Codeine] Azithromycin [Zithromax TAB] 250 mg PO QDAY #6 tablet 03/29/18 Unknown Rx Ibuprofen 800 mg PO TID PRN #30 tablet 04/07/18 Unknown Rx HYDROcodone/APAP 5-325 [[employer] 1 each PO Q6HR PRN 3 Days #12 05/27/18 Unknown Rx 5-325 mg TAB] tablet Acetaminophen [Non-Aspirin Extra 500 mg PO Q6HR PRN #30 tablet 09/04/18 Unknown Rx Strength] Albuterol Sulfate [Proair 90 mcg IH Q4HR PRN #2 aer.pow.ba 09/04/18 Unknown Rx Respiclick] Benzonatate [Tessalon Perles] 100 mg PO Q8HR PRN #30 capsule 09/04/18 Unknown Rx Fluticasone [Flonase] 1 spray NS QDAY #1 bottle 09/04/18 Unknown Rx Ondansetron [Zofran Odt] 4 mg PO Q8HR PRN #20 tab.rapdis 09/04/18 Unknown Rx Cyclobenzaprine [Flexeril 10 MG 10 mg PO QHS PRN #10 tablet 10/14/18 Unknown Rx TAB] ED Physical Exam - General Limitations: No Limitations Critical care attestation.: If time is entered above; I have spent that time in minutes in the direct care of this critically ill patient, excluding procedure time. ED Disposition Clinical Impression: Sprain of left index finger Qualifiers: Encounter type: initial encounter Sprain of finger site: metacarpophalangeal joint Qualified Code(s): S63.651A - Sprain of metacarpophalangeal joint of left index finger, initial encounter Disposition: TO HOME OR SELFCARE Is pt being admited?: No Does the pt Need Aspirin: No Condition: Stable Instructions: Finger Sprain (ED) Prescriptions: Cyclobenzaprine [Flexeril 10 MG TAB] 10 mg PO QHS PRN #10 tablet PRN Reason: Muscle Spasm Referrals: YISSEL MCDANIEL MD [Primary Care Provider] - 3-5 Days
== END 2018-10-14 12:00 | disposition home or self-care (01) ==
LOC: ED 09:53
DX: S63.611A Unspecified sprain of left index finger, initial encounter (principal); J45.909 Unspecified asthma, uncomplicated; Z90.710 Acquired absence of both cervix and uterus; Z98.890 Other specified postprocedural states; Z79.899 Other long term (current) drug therapy; Z88.6 Allergy status to analgesic agent; Z88.2 Allergy status to sulfonamides; X58.XXXA Exposure to other specified factors, initial encounter; Y93.89 Activity, other specified; Y92.89 Other specified places as the place of occurrence of the external cause; Y99.0 Civilian activity done for income or pay
CPT/HCPCS: 99283

== ENCOUNTER 2018-11-30 20:33 | Emergency (ER) | payer SELFPAY ==
--- NOTE | 2018-11-30 22:07 | Emergency Department Report ---
Blank Doc - Documentation Documentation: 33-year-old female that presents with abdominal pain and right leg pain. Denies any calf pain. Stated has history of hernia. This initial assessment/diagnostic orders/clinical plan/treatment(s) is/are subject to change based on patient's health status, clinical progression and re- assessment by fellow clinical providers in the ED. Further treatment and workup at subsequent clinical providers discretion. Patient/guardians urged not to elope from the ED as their condition may be serious if not clinically assessed and managed. Initial orders include: 1- Patient sent to [facility] for further evaluation and treatment 2- labs 3- UA
[2018-11-30 22:40] LABS: Basophils % (Auto) 0.6 % (0.0-1.8); Eosinophils # (Auto) 0.1 K/mm3 (0.0-0.4); Eosinophils % (Auto) 0.8 % (0.0-4.3); Hematocrit 36.9 % (30.3-42.9); Hemoglobin 12.1 gm/dl (10.1-14.3); Lymphocytes # (Auto) 2.9 K/mm3 (1.2-5.4); Lymphocytes % (Auto) 38.8 % (13.4-35.0); Mean Corpuscular HGB Conc 33 % (30-34); Mean Corpuscular Volume 84 fl (79-97); Monocytes # (Auto) 0.3 K/mm3 (0.0-0.8); Monocytes % (Auto) 4.5 % (0.0-7.3); Platelet Count 186 K/mm3 (140-440); Red Blood Count 4.37 M/mm3 (3.65-5.03); Red Cell Distribution Width 14.2 % (13.2-15.2)
[2018-11-30 23:05] LABS: Alanine Aminotransferase 14 units/L (7-56); Albumin 4.6 g/dL (3.9-5); BUN/Creatinine Ratio 18; Blood Urea Nitrogen 11 mg/dL (7-17); Calcium 9.2 mg/dL (8.4-10.2); Hemolysis Index 53
--- NOTE | 2018-11-30 23:53 | XRay Report ---
ACUTE ABDOMEN SERIES 3 VIEWS [id number] INDICATION: Decreased urination, possible right lower abdominal hernia increase COMPARISON: Chest x-ray 03/29/2018 FINDINGS: Lung macario are clear. No pneumoperitoneum is seen. Bowel gas pattern is unremarkable. No u rinary tract calculi are noted. Signer Name: Fabian Isbell MD Signed: 11/30/2018 11:49 PM Workstation Name: [id number]
[2018-12-01] MEDS ORDERED: ZOFRAN IV ONE (02:20)
[2018-12-01] MEDS ORDERED: MORPHINE IV ONE (02:20)
[2018-12-01] MEDS ORDERED: NACL 0.9% 1000 ML 1,000 ML IV ONE (02:20)
--- NOTE | 2018-12-01 03:50 | Cat Scan Report ---
CT ABDOMEN AND PELVIS WITH CONTRAST INDICATION: Lower abd pain, inguinal hernia, constipation CONTRAST: 100 cc Omnipaque 300 IV COMPARISON: 11/20/[address] scans at this location are performed using CT dose reduction for ALARA by means of automated e xposure control. FINDINGS: Lung bases are clear. No pneumoperitoneum is noted. Tiny cysts are again seen in the liver. No urinary obstructive changes are seen. No focal inflammatory changes are noted. No other masses ar e seen. Right ovarian cyst seen previously is no longer noted. Small left ovarian cyst is seen simila r to prior study. Small amount of free fluid is seen in the pelvis. Appendix appears within normal li mits. No evidence of bowel obstruction is seen. Some fluid-filled small bowel loops are noted without dilatation though with mild distention. No lymphadenopathy is seen. On previous study there appear to be minimal bilateral inguinal hernias containing small amounts of f luid but without bowel or inflammation. On current examination both are mildly more prominent but aga in without obvious bowel or inflammatory change. Increase is more noticeable on the right than left. The hernia sac on the right measures approximately 3 cm in diameter. Small amount of free fluid is se en in the pelvis adjacent to the right inguinal hernia which is more noticeable than on prior study. No intrapelvic inflammatory change is seen. IMPRESSION: 1. Small bilateral inguinal hernias are seen as discussed above with fluid but without bowel or infla mmation. These are more prominent than on prior study, particularly on the right as described. 2. Resolution of previous right ovarian cyst which had been discussed. Signer Name: Fabian Isbell MD Signed: 12/01/2018 3:45 AM Workstation Name: [id number]
--- NOTE | 2018-12-01 04:03 | Emergency Department Report ---
HPI - General Chief Complaint: Abdominal Pain Time Seen by Provider: 11/30/18 22:05 - HPI HPI: This is a 33-year-old -[place] female who presents to the emergency department with a complaint of some lower abdomen and groin pain with right greater than left has been going on for the past 2 days. However this appears to be an acute on chronic condition for her. Patient had inguinal hernia surgery done by Dr. Martinez at the [facility] on 02/25/2018. She says that the abdominal pain is also associated with some nausea and vomiting, decreased bowel movements and some numbness to the upper part of the right thigh. The patient was here about 11 days ago for similar symptoms and had a CT scan of the abdomen and pelvis and transvaginal ultrasound that showed the hernia without bowel and some ovarian cysts including a hemorrhagic right ovarian cyst. No fever. She has a history of 3, hysterectomy and this elective hernia repair. Patient has not taken anything for her symptoms today prior to presentation. ED Past Medical Hx - Past Medical History Hx Hypertension: No Hx Heart Attack/AMI: No Hx Liver Disease: No Hx Renal Disease: No Hx Asthma: Yes Additional medical history: abnormal vaginal bleeding, Sinusitis - Surgical History Additional Surgical History: x 3. hysterectomy 03/10 HERNIA SSURGERY, RIGHT INGUINAL HERNIA REPAIR - Social History Smoking Status: Former Smoker Substance Use Type: None - Medications Home Medications: Home Medications Medication Instructions Recorded Confirmed Last Taken Type predniSONE [Deltasone] 20 mg PO DAILY #5 tablet 03/22/17 Unknown Rx Oxymetazoline 0.05% [Afrin] 2 spray NS BID #1 bottle 04/15/17 Unknown Rx predniSONE [Deltasone] 40 mg PO QDAY #10 tab 04/15/17 Unknown Rx Amoxicillin/Potassium Clav 1 tab PO BID #20 tablet 01/05/18 Unknown Rx [Augmentin 875-125 Tablet] Carbamide Peroxide 6.5% [Ear Wax 2 drops OT TID #1 bottle 01/05/18 Unknown Rx Drops] Acetamin/Codeine 120-12Mg/5 ml 5 ml PO TID #60 ml 03/29/18 Unknown Rx [Tylenol/Codeine] Azithromycin [Zithromax TAB] 250 mg PO QDAY #6 tablet 03/29/18 Unknown Rx Ibuprofen 800 mg PO TID PRN #30 tablet 04/07/18 Unknown Rx Acetaminophen [Non-Aspirin Extra 500 mg PO Q6HR PRN #30 tablet 09/04/18 Unknown Rx Strength] Albuterol Sulfate [Proair 90 mcg IH Q4HR PRN #2 aer.pow.ba 09/04/18 Unknown Rx Respiclick] Benzonatate [Tessalon Perles] 100 mg PO Q8HR PRN #30 capsule 09/04/18 Unknown Rx Fluticasone [Flonase] 1 spray NS QDAY #1 bottle 09/04/18 Unknown Rx Cyclobenzaprine [Flexeril 10 MG 10 mg PO QHS PRN #10 tablet 10/14/18 Unknown Rx TAB] Ibuprofen [Motrin] 400 mg PO Q6HR PRN #30 tablet 11/20/18 Unknown Rx Ondansetron [Zofran Odt] 4 mg PO Q8HR PRN #20 tab.rapdis 11/20/18 Unknown Rx diphenhydrAMINE [Benadryl] 25 mg PO Q8HR PRN #20 capsule 11/20/18 Unknown Rx HYDROcodone/APAP 5-325 [[employer] 1 each PO Q6HR PRN #10 tablet 12/01/18 Unknown Rx 5-325 mg TAB] Ondansetron [Zofran ODT TAB] 4 mg PO Q8HR PRN #14 tab.rapdis 12/01/18 Unknown Rx ED Review of Systems ROS: Stated complaint: LEG NUMBNESS/HEADACHES Other details as noted in HPI Comment: All other systems reviewed and negative Constitutional: denies: chills, fever Eyes: denies: eye pain, vision change ENT: denies: ear pain, throat pain Respiratory: denies: cough, shortness of breath Cardiovascular: denies: chest pain, palpitations Gastrointestinal: abdominal pain, nausea, vomiting, constipation Genitourinary: denies: dysuria, discharge Musculoskeletal: denies: back pain, joint swelling Skin: denies: rash, lesions Neurological: numbness (right thigh). denies: headache Physical Exam - Physical Exam Vital Signs: Vital Signs 11/30/18 12/01/18 12/01/18 22:05 01:29 02:34 Temperature 98.8 F Pulse Rate 75 Respiratory 16 18 Rate Blood Pressure 115/70 110/68 O2 Sat by Pulse 100 100 Oximetry 12/01/18 12/01/18 02:45 02:48 Temperature Pulse Rate 78 Respiratory Rate Blood Pressure 110/68 O2 Sat by Pulse 99 Oximetry Physical Exam: GENERAL: The patient is well-developed well-nourished. HENT: Normocephalic. Atraumatic. Patient has moist mucous membranes. EYES: Extraocular motions are intact. Pupils equal reactive to light bilaterally. NECK: Supple. Trachea is midline. CHEST/LUNGS: Clear to auscultation. There is no respiratory distress noted. HEART/CARDIOVASCULAR: Regular. There is no tachycardia. There is no murmur. ABDOMEN: Abdomen is soft. Mild lower abdominal tenderness to palpation. No guarding. Patient has normal bowel sounds. There is no abdominal distention. SKIN: Skin is warm and dry. NEURO: The patient is awake, alert, and oriented. The patient is cooperative. The patient has no focal neurologic deficits. Normal speech. MUSCULOSKELETAL: There is no tenderness or deformity. There is no limitation range of motion. There is no evidence of acute injury. : There is some tenderness to palpation to the right inguinal groin where the patient has previous hernia repair. There is some small fluctuant swelling that is tender to palpation. ED Course Vital Signs 11/30/18 12/01/18 12/01/18 22:05 01:29 02:34 Temperature 98.8 F Pulse Rate 75 Respiratory 16 18 Rate Blood Pressure 115/70 110/68 O2 Sat by Pulse 100 100 Oximetry 12/01/18 12/01/18 02:45 02:48 Temperature Pulse Rate 78 Respiratory Rate Blood Pressure 110/68 O2 Sat by Pulse 99 Oximetry ED Medical Decision Making - Lab Data Result diagrams: 11/30/18 22:25 11/30/18 22:25 - Radiology Data Radiology results: report reviewed, image reviewed interpreted by me: Chest x-ray does not show any acute process. There are no pleural effusions, obvious pneumonia and there is no pneumothorax. Abdominal x-ray shows nonspecific nonobstructive bowel gas CT ABDOMEN AND PELVIS WITH CONTRAST INDICATION: Lower abd pain, inguinal hernia, constipation CONTRAST: 100 cc Omnipaque 300 IV COMPARISON: 11/20/[address] scans at this location are performed using CT dose reduction for ALARA by means of automated exposure control. FINDINGS: Lung bases are clear. No pneumoperitoneum is noted. Tiny cysts are again seen in the liver. No urinary obstructive changes are seen. No focal inflammatory changes are noted. No other masses are seen. Right ovarian cyst seen previously is no longer noted. Small left ovarian cyst is seen similar to prior study. Small amount of free fluid is seen in the pelvis. Appendix appears within normal limits. No evidence of bowel obstruction is seen. Some fluid- filled small bowel loops are noted without dilatation though with mild distention. No lymphadenopathy is seen. On previous study there appear to be minimal bilateral inguinal hernias containing small amounts of fluid but without bowel or inflammation. On current examination both are mildly more prominent but again without obvious bowel or inflammatory change. Increase is more noticeable on the right than left. The hernia sac on the right measures approximately 3 cm in diameter. Small amount of free fluid is seen in the pelvis adjacent to the right inguinal hernia which is more noticeable than on prior study. No intrapelvic inflammatory change is seen. IMPRESSION: 1. Small bilateral inguinal hernias are seen as discussed above with fluid but without bowel or inflammation. These are more prominent than on prior study, particularly on the right as described. 2. Resolution of previous right ovarian cyst which had been discussed. - Medical Decision Making Patient presents to the emergency department with some lower abdominal pain and pain to the groin where she has a history of inguinal hernia repair. Labs have been unremarkable. She was given medication for pain, nausea. Vital signs stable throughout her ED course. CT scan of the abdomen and pelvis with IV contrast was done that shows small bilateral fluid-filled hernias without any bowel and resolution of the previous ovarian cysts. Since there is no bowel within the hernia, there is no concern for incarceration or strangulation. Patient was reevaluated multiple times over multiple hours and is feeling improved. There is been no further vomiting within the emergency department. She'll be discharged home with some Zofran, a small amount of pain medication, and attractions to follow-up with her primary care physician and general surgeon. She will return to the ER with any worsening of her symptoms or any acute distress. - Differential Diagnosis hernia, ovarian cysts, UTI Critical Care Time: No Critical care attestation.: If time is entered above; I have spent that time in minutes in the direct care of this critically ill patient, excluding procedure time. ED Disposition Clinical Impression: Inguinal hernia, bilateral Qualifiers: Obstruction and gangrene presence: without obstruction or gangrene Recurrence: not specified as recurrent Qualified Code(s): K40.20 - Bilateral inguinal hernia, without obstruction or gangrene, not specified as recurrent Abdominal pain Qualifiers: Abdominal location: unspecified location Qualified Code(s): R10.9 - Unspecified abdominal pain Disposition: TO HOME OR SELFCARE Is pt being admited?: No Condition: Stable Instructions: Inguinal Hernia (ED), Abdominal Pain (ED) Additional Instructions: Please follow-up with your general surgeon regarding the abdominal pain and ing uinal hernias. Return to the emergency Department with any worsening of your symptoms or with any acute distress. You have been prescribed a medication that is sedating and therefore should not be taken prior to driving, working, and responsible for children and in no way should be mixed with alcohol of any quantity. Prescriptions: HYDROcodone/APAP 5-325 [[employer] 5-325 mg TAB] 1 each PO Q6HR PRN #10 tablet PRN Reason: Pain , Severe (7-10) Ondansetron [Zofran ODT TAB] 4 mg PO Q8HR PRN #14 tab.rapdis PRN Reason: Nausea Referrals: General Surgeon, Your [Other] - 2-3 Days Primary Care Provider, Your [Other] - 2-3 Days Forms: Work/School Release Form(ED) Time of Disposition: 04:05
[2018-12-01 04:19] VITALS: BP 114/70
== END 2018-12-01 04:19 | disposition home or self-care (01) ==
LOC: ED 20:33
DX: K40.20 Bilateral inguinal hernia, without obstruction or gangrene, not specified as recurrent (principal); J45.909 Unspecified asthma, uncomplicated; Z87.891 Personal history of nicotine dependence; Z88.6 Allergy status to analgesic agent; Z88.2 Allergy status to sulfonamides
CPT/HCPCS: 36415; 74022; 74177; 80053; 84703; 85025; J2270; J2405; J7030; Q9967; 96374; 96375

== ENCOUNTER 2019-08-23 22:48 | Emergency (ER) | payer SELFPAY ==
[2019-08-23] MEDS ORDERED: HYDROcodone/ACETAMINOPHEN 5-325 MG TAB PO ONE (23:48)
[2019-08-23] MEDS ORDERED: ONDANSETRON 4 MG ODT TAB PO ONE (23:48)
[2019-08-23] MEDS ORDERED: IBUPROFEN 400 MG TAB PO ONE (23:49)
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
[2019-08-24 02:05] VITALS: BP 122/63
== END 2019-08-24 01:46 | disposition home or self-care (01) ==
LOC: ED 22:48
DX: S02.2XXA Fracture of nasal bones, initial encounter for closed fracture (principal); S00.83XA Contusion of other part of head, initial encounter; S00.03XA Contusion of scalp, initial encounter; S10.93XA Contusion of unspecified part of neck, initial encounter; J45.909 Unspecified asthma, uncomplicated; F17.200 Nicotine dependence, unspecified, uncomplicated; Z79.899 Other long term (current) drug therapy; Z88.6 Allergy status to analgesic agent; Z88.2 Allergy status to sulfonamides; Z98.890 Other specified postprocedural states; Z90.710 Acquired absence of both cervix and uterus; Y04.8XXA Assault by other bodily force, initial encounter; Y93.89 Activity, other specified; Y92.099 Unspecified place in other non-institutional residence as the place of occurrence of the external cause; Y99.8 Other external cause status
CPT/HCPCS: 70450; 70486; 72125; 99283; Q0162